=== PATIENT | female | born 1990 | race Caucasian/White ===

== ENCOUNTER 2016-12-09 21:27 | Inpatient (IN) | payer OTHER, BC ==
[2016-12-09 22:01] VITALS: BMI 40.9
[2016-12-09] MEDS ORDERED: PENICILLIN G POTASSIUM 5 MMU in NS 0.9% (MINI-BAG PLUS) 100 ML IV ONE (22:13)
[2016-12-09] MEDS ORDERED: OXYTOCIN IN LR 500 ML IV ONE (22:13)
[2016-12-09] MEDS ORDERED: LACTATED RINGERS 1,000 ML IV SCH (22:15)
[2016-12-09] MEDS ORDERED: PUMP TUBING ONE (22:19)
[2016-12-09] MEDS ORDERED: LIDOCAINE 1% (PRES FREE) 30 ML VIAL ONE (22:19)
[2016-12-09] MEDS ORDERED: IV START KIT ONE (22:19)
[2016-12-09] MEDS ORDERED: OXYTOCIN 10 UNITS/ML VIAL ONE (22:19)
[2016-12-09] MEDS ORDERED: MINERAL OIL 25 ML BOT ONE (22:19)
[2016-12-09] MEDS ORDERED: LIDOCAINE Viscous 2% 15 ML UDCUP ONE (22:19)
[2016-12-09] MEDS ORDERED: PENICILLIN G POTASSIUM 5 MMU VIAL ONE (22:26)
[2016-12-09] MEDS ORDERED: NS 0.9% (MINI-BAG PLUS) 100 ML IV ONE (22:27)
[2016-12-09] MEDS: LACTATED RINGERS 1,000 ML IV PRN (22:52)
[2016-12-09 23:31] LABS: HEMATOCRIT 36.9 % (37.0-47.0); HEMOGLOBIN 12.3 gm/l (12.0-16.0); MEAN CELL VOLUME 84.6 fl (81.0-99.0); MEAN CORPUSCULAR HEMOGLOBIN 28.2 pg (27.0-31.0); MEAN CORPUSCULAR HGB CONC 33.3 g/dl (33.0-37.0); RED CELL DISTRIBUTION WIDTH 13.6 % (11.5-14.5)
[2016-12-10] MEDS ORDERED: PENICILLIN G 3 MIL UNIT PREMIX 50 ML IV ONE ×3 (02:43→11:01)
[2016-12-10] MEDS: PENICILLIN G 3 MIL UNIT PREMIX 3 MMU in Premix (D5W) 50 ml 1 EACH IV SCH ×3 (02:58→11:06)
[2016-12-10] MEDS: OXYTOCIN IN LR 500 ML IV PRN ×3 (03:37→04:35)
[2016-12-10] MEDS: LACTATED RINGERS 1,000 ML IV PRN ×2 (07:00→09:42)
--- NOTE | 2016-12-10 07:22 | PDOC36 ---
Provider Note Note: ob note: admitted by dr gallego with spontaneous rupture of membranes at 2100hrs on 12/09/16. started on pitocin. cervix: 5cm/60%/vertex -1 station, category 2 tracing with occasional late decelerations and moderate variability. estimated weight of baby 7 1/2 lbs.
--- NOTE | 2016-12-10 08:15 | PCMAN ---
OB Admission Note - History : 3 Term: 1 : 0 Abortions (S&E): 1 Livin Gestational Age (weeks): 39 Days (#/7): 5 Admit Cervical Dilation:: 2-3 Admit Cervical Effacement (%):: 50 Admit Station:: -3 Membrane Status: Ruptured Rupture (Date): 12/09/16 Rupture (Time): 21:00 Membranes Comment:: clear Contractions: Yes Contraction Frequency:: very occassionally Heart Rate:: 140 Status:: Cat I EFW:: 7# Summary of Course:: Patient underwent an unremarkable course. She is Rh negative and received rhogam at 28 weeks. She is GBS positive. - Labs Blood Type: A (-) negative Hct/Hgb:: 12.3/36.9 Rubella Status: Immune GBS Status: Positive Abnormal Labs: None (Late entry for 2100 )
[2016-12-10] MEDS ORDERED: EPIDURAL PUMP SET ONE (08:34)
[2016-12-10] MEDS ORDERED: FENTANYL/ROPIVACAINE EPIDURAL 250 ML EP ONE (08:35)
[2016-12-10] MEDS ORDERED: EPIDURAL PROCEDURE TRAY ONE (09:20)
[2016-12-10] MEDS: FENTANYL/ROPIVACAINE EPIDURAL 250 ML EP SCH (09:30)
[2016-12-10] MEDS ORDERED: EPHEDRINE SULFATE 50 MG/ML 1ML VIAL IV PRN (10:47)
[2016-12-10] MEDS ORDERED: LACTATED RINGERS 500 ML IV PRN (10:47)
[2016-12-10] MEDS ORDERED: ONDANSETRON 4 MG/2ML 2 ML VIAL IV PRN (10:47)
[2016-12-10] MEDS ORDERED: SODIUM CHLORIDE 0.9% 500 ML IV PRN (10:47)
[2016-12-10] MEDS ORDERED: NALOXONE HCL 0.4 MG/ML VIAL IV PRN (10:47)
[2016-12-10] MEDS ORDERED: METOCLOPRAMIDE HCL 5 MG/ML 2ML VIAL IV PRN (10:47)
[2016-12-10] MEDS ORDERED: DIPHENHYDRAMINE HCL 50 MG/1 ML VIAL IV PRN (10:47)
[2016-12-10] MEDS ORDERED: NALBUPHINE HCL 20 MG/ML AMP IV PRN (10:47)
--- NOTE | 2016-12-10 12:40 | PDOC36 ---
Provider Note Subject: labor progress note Note: Called to room for eval of patient by RN after phone conversation with Dr. Tolentino (in case), requesting AROM of for-bag with consideration to decrease or discontinue pitocin. I reviewed plan with Dr. Tolentino by phone. S: Pt in bed comfortable. O: VE: 7cm/100/-2 FHT: 145/moderate variability/accels present/variable and late decels CTX: q 2-4min/60-90s, Pitocin at 7 A: with IUP at 39w5d SROM, clear fluid, GBS pos, adequate PCN FHT: Cat. II P: AROM of for-bag for clear fluid. FSE placed. Pitocin decreased. Dr. Walden to room to fill in for Dr. Tolentino, report given.
--- NOTE | 2016-12-10 12:51 | PCMDEL ---
Delivery Note - Labor 2nd stage (hr/min):: 1220 3rd stage (hr/min):: 1238 Pushed (hr/min):: 8 m - Delivery Delivery (Date): 12/10/16 Delivery (Time): 12:38 Infant Gender: Female Presentation: Cephalic Position: OA Umbilical Cord: 3 Vessel Delayed Cord Clamping:: < 1-2 min 1 Minute Total: 10 5 Minute Total: 10 Placenta:: intact EBL:: 150 Perineum:: 1st degree labial Suture:: 3.0 vicryl
[2016-12-10] MEDS ORDERED: LANOLIN 50 APPLIC/7G TUBE TP PRN (13:04)
[2016-12-10] MEDS ORDERED: CALCIUM CARBONATE 500 MG TAB.CHEW PO PRN (13:04)
[2016-12-10] MEDS ORDERED: BENZOCAINE/MENTHOL 60 APPLIC/BOT TP PRN (13:04)
[2016-12-10] MEDS ORDERED: OXYTOCIN IN LR 500 ML IV ONE (13:04)
[2016-12-10] MEDS ORDERED: PNEUMOCOCCAL 23-VAL P-SAC VAC 0.5 ML VIAL IM V ONE (14:30)
[2016-12-10] MEDS: IBUPROFEN 800 MG TABLET PO PRN (18:21)
[2016-12-10] MEDS ORDERED: ZOLPIDEM TARTRATE 5 MG TABLET PO PRN (21:27)
[2016-12-11] MEDS: OXYCODONE/ACETAMINOPHEN 5/325 MG TABLET PO PRN ×4 (00:12→12:33)
[2016-12-11] MEDS: IBUPROFEN 800 MG TABLET PO PRN ×2 (01:07→09:05)
[2016-12-11 06:33] LABS: HEMATOCRIT 33.1 % (37.0-47.0); HEMOGLOBIN 10.9 gm/l (12.0-16.0)
[2016-12-11] MEDS ORDERED: RHOGAM 300 MCG SYRINGE IV ONE (07:43)
[2016-12-11] MEDS: FENTANYL/ROPIVACAINE EPIDURAL 250 ML EP SCH (08:06)
[2016-12-11] MEDS: LACTATED RINGERS 1,000 ML IV SCH (08:08)
[2016-12-11 09:05] VITALS: BP 110/59
--- NOTE | 2016-12-11 10:59 | PDOC39B ---
Hospital Course: ADMIT DATE: 12/09/16 DISCHARGE DATE: 12/11/16 ADMISSION DIAGNOSES: intrauterine at 39.5 days, spontaneous rupture of membranes, group b strep positive PROCEDURES: pitocin induction, spontaneous vaginal delivery, repair of 1st degree laceration HISTORY OF PRESENT ILLNESS: 26 year old G3 T1 L1 at 39 weeks 5 days presenting with history of spontaneous rupture of membranes HOSPITAL COURSE: The patient had an uneventful post course and requested discharge on 12/11/16 By day of discharge the patient is ambulating, eating, voiding, and passing flatus without difficulty. Pain is controlled and lochia is appropriate. She is [] - Physical Exam Vital Signs: Temp Pulse Resp BP Pulse Ox 98.1 F 69 16 110/59 12/11/16 09:01 12/11/16 09:01 12/11/16 09:01 12/11/16 09:01 General: Afebrile, No Acute Distress Psych/Mental Status: Mood/Affect Appropriate, Judgment/Insight Intact, Bonding Well Breast: Soft, Skin intact, Nipples Intact, No Tenderness, No Erythema, No Engorged Fundus: Firm, Midline, Below Umbilicus, Other (nontender) Genitourinary: Other (voiding without difficulty) Lochia: Light Extremities: No Tenderness - Discharge Diagnosis (1) Anemia, Status: Acute - Discharge Plan Condition: Stable Disposition: Home Instruction Forms: Vaginal Discharge Instructions Additional Instructions: nothing in vagina x 6 weeks, follow up with dr gallego in 2 weeks, analgesics as needed, iron supplementation as prescribed. Prescriptions: Ibuprofen [Motrin] 800 mg PO Q8H PRN #30 tablet PRN Reason: Pain FERROUS SULFATE (65 Fe) [IRON FERROUS SULFATE 325 MG TABLET (SHF)] 325 mg PO DAILY #30 tab Oxycodone HCl/Acetaminophen [PERCOCET 5/325 MG TABLET (SHF)] 1 - 2 tab PO Q4H PRN #14 tablet PRN Reason: Pain (Moderate)
== END 2016-12-11 14:44 | disposition home or self-care (01) | DRG 775 ==
LOC: FBC 21:27 → FBCOUT 21:27 → FBC 22:14
PROVIDERS: ADMIT Obstetrics & Gynecology; ATTEND Obstetrics & Gynecology
PROC: 10907ZC Drainage of Amniotic Fluid, Therapeutic from Products of Conception, Via Natural or Artificial Opening (ICD-10-PCS; 2016-12-09)
PROC: 3E033VJ Introduction of Other Hormone into Peripheral Vein, Percutaneous Approach (ICD-10-PCS; 2016-12-09)
PROC: 0HQ9XZZ Repair Perineum Skin, External Approach (ICD-10-PCS; principal; 2016-12-10)
PROC: 10E0XZZ Delivery of Products of Conception, External Approach (ICD-10-PCS; 2016-12-10)
DX: O70.0 First degree perineal laceration during delivery (principal); O99.824 Streptococcus B carrier state complicating childbirth; O76 Abnormality in fetal heart rate and rhythm complicating labor and delivery; Z3A.39 39 weeks gestation of pregnancy; Z37.0 Single live birth

== ENCOUNTER 2016-12-13 10:03 | Outpatient (CLI) | payer OTHER, BC | END 2016-12-13 10:04 | disposition home or self-care (01) | LOC: BABIESSH 10:03 | PROVIDERS: ATTEND Obstetrics & Gynecology | DX: Z39.1 Encounter for care and examination of lactating mother (principal) ==

== ENCOUNTER 2016-12-17 09:58 | Outpatient (CLI) | payer OTHER, BC | END 2016-12-17 09:59 | disposition home or self-care (01) | LOC: BABIESSH 09:58 | PROVIDERS: ATTEND Obstetrics & Gynecology | DX: Z39.1 Encounter for care and examination of lactating mother (principal) ==